=== PATIENT | female | born 1940 | race Caucasian/White ===

== ENCOUNTER 2020-05-17 08:00 | Day surgery (SDC) | payer MEDICARE ==
[2020-05-12 12:14] LABS: HEMATOCRIT 41.6 % (36.0-47.0); HEMOGLOBIN 14.2 g/dL (12.0-15.5); MEAN CORPUSCULAR HEMOGLOBIN 31.6 pg (27.0-33.4); MEAN CORPUSCULAR HGB CONC 34.2 g/dL (32.0-36.0); MEAN CORPUSCULAR VOLUME 92 fl (80-97); PLATELET COUNT 233 10^3/uL (150-450); RED CELL DISTRIBUTION WIDTH 13.4 % (11.5-14.0); WHITE BLOOD COUNT 9.4 10^3/uL (4.0-10.5)
[2020-05-12 12:34] LABS: ANION GAP 6 (5-19); BLOOD UREA NITROGEN 16 mg/dL (7-20); CALCIUM 9.4 mg/dL (8.4-10.2); CARBON DIOXIDE 27 mmol/L (22-30); CHLORIDE 106 mmol/L (98-107); GLUCOSE 104 mg/dL (75-110); POTASSIUM 4.8 mmol/L (3.6-5.0)
--- NOTE | 2020-05-12 16:37 | EKG REPORT ---
SEVERITY:- NORMAL ECG - SINUS BRADYCARDIA : Confirmed by: Josep Meyer MD 12-May-2020 16:36:54
[~2020-05-17 08:00] MED LIST: CEFAZOLIN 1 GM/D5W RTU 1 GM/50 ML RTUPB IV ONE; CEFAZOLIN 1 GM/D5W RTU 1 GM/50 ML RTUPB IV PRN; LACTATED RINGERS 1000 ML IV PRN; LIDOCAINE 0.5% INJ-PF (5 MG/ML) 50 ML SDV SUBCUT PRN; LIDOCAINE 4% CREAM 5 GM TUBE ONE; LIDOCAINE 4% CREAM 5 GM TUBE TP PRN
[2020-05-17] MEDS ORDERED: DEXAMETHASONE SOD PHOSPHATE INJ 4 MG/1 ML VIAL ONE ×2 (10:59→13:04)
[2020-05-17] MEDS ORDERED: ONDANSETRON HCL INJ/PF 4 MG/2 ML SDV ONE ×2 (10:59→13:04)
[2020-05-17] MEDS ORDERED: METHYLENE BLUE 50 MG/10 ML AMPULE ONE (12:52)
[2020-05-17] MEDS ORDERED: LIDOCAINE 1%/EPINEPHRINE INJ 20 ML VIAL ONE (12:52)
[2020-05-17] MEDS ORDERED: MICROFIBRILLAR COLLAGEN 1 GM PACK ONE (12:52)
[2020-05-17] MEDS ORDERED: KETOROLAC TROMETHAMINE 60 MG/2 ML SDV ONE (13:04)
[2020-05-17] MEDS ORDERED: LIDOCAINE 2% INJ-PF (20 MG/ML) 10 ML AMPUL ONE (13:04)
[2020-05-17] MEDS ORDERED: HYDROMORPHONE HCL INJ/PF 2 MG/ML AMPULE ONE (13:04)
[2020-05-17] MEDS ORDERED: FENTANYL CITRATE INJ/PF 100 MCG/2 ML AMPUL ONE ×2 (13:04→14:36)
--- NOTE | 2020-05-17 13:04 | RADIOLOGY REPORT (SQ) ---
EXAM DESCRIPTION: NM LYMPHATICS/LYMPH GLANDS IMAGES COMPLETED DATE/TIME: 05/17/2020 11:00 am REASON FOR STUDY: BREAST CANCER C50.911 MALIGNANT NEOPLASM OF UNSP SITE OF RIGHT FEMALE JÚNIOR COMPARISON: None. RADIONUCLIDE AND DOSE: 565 microcuries TC-99m tilmanocept - [employer]. The route of agent administration: Subcutaneous in the skin. TECHNIQUE: The skin of the right breast was prepped in sterile fashion. The radiopharmaceutical was administered in equally divided doses in the periareolar breast, upper inner quadrant. LIMITATIONS: None. FINDINGS: Images demonstrate activity at the injection site as well as migration to 2 right axillary lymph nodes. IMPRESSION: ADMINISTRATION OF RADIOPHARMACEUTICAL FOR SENTINEL LYMPH NODE EVALUATION. TECHNICAL DOCUMENTATION: JOB ID: [id number] 2010 [employer]- All Rights Reserved Reading location - IP/workstation name: [email or web address]
[2020-05-17] MEDS ORDERED: PROPOFOL INJ 200 MG/20 ML VIAL IV ONE (13:05)
[2020-05-17] MEDS ORDERED: PROMETHAZINE HCL INJ 25 MG/1 ML VIAL IV PRN ×2 (13:52)
[2020-05-17] MEDS ORDERED: DIPHENHYDRAMINE HCL 50 MG/ML VIAL IV PRN (13:52)
[2020-05-17] MEDS ORDERED: MORPHINE SULFATE 10 MG/ML INJ IV PRN (13:52)
[2020-05-17] MEDS ORDERED: MEPERIDINE HCL/PF INJ 25 MG/1 ML DISP.SYRIN IV PRN (13:52)
[2020-05-17] MEDS ORDERED: FENTANYL CITRATE INJ/PF 100 MCG/2 ML AMPUL IV PRN ×3 (13:52)
--- NOTE | 2020-05-17 14:29 | Operative Report ---
Operative Report DATE OF SURGERY: 05/17/20 PREOPERATIVE DIAGNOSIS: Invasive ductal carcinoma, right breast, triple negative POSTOPERATIVE DIAGNOSIS: Same OPERATION: 1. Right breast lumpectomy using ultrasound guidance. 2. [place] lymph node biopsy, right axilla. 3. Interpretation of specimen radiograph intraoperatively SURGEON: TOAN HURD SPECIAL OFFICER AUTOMAT: CHANDRAKANT YAÑEZ ANESTHESIA: GA TISSUE REMOVED OR ALTERED: Right breast lumpectomy; right axillary sentinel lymph node COMPLICATIONS: None ESTIMATED BLOOD LOSS: Scant INTRAOPERATIVE FINDINGS: See below PROCEDURE: Patient was seen in preop holding area the right breast was marked. Patient undergone lymphoscintigraphy the right axilla with area of increased uptake. She was taken to the main operating room where general anesthesia was induced via LMA. Surgical plan and surgical timeout were conducted. Right arm was abducted, right breast exposed. The right breast was now injected with approximately 2 and half cc of full-strength methylene blue at the upper outer edge of the areolar border into the dermis. The right breast was massaged for 5 minutes, then the right breast and right axilla were prepped and draped in sterile fashion Repeat timeout conducted We approached the right breast lumpectomy first. The target lesion was approximately 6 cm from the nipple 12 o'clock position. This was confirmed by ultrasonography which revealed the previously biopsied and clipped tumor mass approximately 1 cm. Skin overlying the mass was anesthetized 1% plain lidocaine. A 3 and half to 4 cm incision was made with the #10 blade, and a lumpectomy specimen excised using ultrasound real-time as a guide to localize the target tumor. The lumpectomy was performed with electrocautery. Once the specimen was removed from the right breast, it was found to be approximately 5 x 5 x 5 cm. It was oriented with a long suture in the lateral position, short suture in the superior position using 2-0 silk suture. It was ultrasound on the back table and found to contain the tumor and the clip marker. We also subjected the specimen to specimen radiography using the specimen radiograph machine and this displayed 2 views and this confirmed clip marker placement in the tumor. Dr. Hamilton walked the specimen over to pathology where it was reviewed by Drs. Prado and Juan. The specimen was inked on the anterior side, and felt to contain the tumor within an adequate gross margin so no further cavity margins were recommended. The right axilla was now exposed. An area of increased activity was detected with the bedside neoprobe. Skin was anesthetized 1% plain lidocaine. A 4 cm incision was made in the right axilla, and the first and only sentinel lymph node was identified. It was blue, hot, and level 1. It was dissected out and found to have an in vivo count of 31,615 and an ex vivo count of 37,625. Chronic counts were negligible. At this point we felt the operation was complete. Sponge and counts are correct. Wounds were found to be hematologically stable. Wounds closed with 3- 0 Vicryl Dermabond glue. Patient tolerated the procedure well, extubated, and taken to recovery room stable condition The physician certified surgical tech/first assistant, Ms. Stark, provided assistance during this case by: Assisting with retracting tissue, instillation of local anesthesia and closure of skin incisions.
[2020-05-17] MEDS ORDERED: OXYCODONE-ACETAMINOPHEN 5-325 MG TABLET PO PRN (14:31)
--- NOTE | 2020-05-17 14:31 | Discharge Summary ---
Discharge Summary (SDC) - Discharge Final Diagnosis: right breast cancer Date of Surgery: 05/17/20 Discharge Date: 05/17/20 Condition: Good Forms: ASU Anesthesia D/C Instruction, Discharge POC-Surgical Service Treatment or Instructions: [facility] [address], [place] [address] Care Instructions Following Your Lumpectomy Activities: Resume normal activities when you feel comfortable. It is best to remain as active as possible to speed your recovery. It is common to experience some fatigue after surgery and you may find that short naps are helpful. Avoid strenuous activity such as weight lifting, tennis, etc at your surgical site for two weeks. Perform gentle arm exercises daily and do not favor your operative arm to due increased risk of mobility issues postoperatively. No driving for 7 days after surgery. Do not drive if you are taking pain medication other than Tylenol or Ibuprofen. No swimming, tub baths or soaking in a hot tub for 4 weeks. There are no dietary restrictions. Do not smoke as this impairs wound healing. Surgical Site care: You may shower 24 hours after surgery to include washing the wound with soap and water using your hands. Leave skin glue intact. Do not scrub the incision. Pat the area dry with a towel. You do not need to recover the wound although some patients find that they feel more comfortable using a light dressing for a few days to absorb any minimal drainage which may occur. Medications: Take Toradol 10mg one pill by mouth every six hours as needed for pain. Do not take additional NSAIDs (Ibuprofen, Aleve, Goodies Powder, ect) with medication. You may take Tylenol with medication. You may experience constipation after surgery while taking pain medications. If using a narcotic on a regular basis, take a stool softener such as Colace twice a day. It is helpful to stay hydrated by drinking lots of fluids. Walking is also helpful and is good exercise after surgery. If you need extra help, use Milk of Magnesia according to the directions on the package. Follow-up: Call our office at to make a follow-up appointment in 10-14 days. Your doctor will call to discuss the pathology report with you as soon as it is available. Concerns: If you had a sentinel lymph node biopsy with your mastectomy, your urine may have a greenish discoloration. This is normal and will resolve as the blue dye slowly leaves your system. If you notice significant leakage around the drains, this is not normal. The drains may be clogged. Please call our office to come in immediately for the drains to be checked. Some bruising may occur and will go away over time. If you have a fever of 101.5 or greater, chills, redness at the incision site, excessive drainage from your wound or severe pain not relieved by pain medication, call your doctor. A physician is available 24 hours a day 7 days a week in addition to regular office hours. If problems arise after normal office hours please call the hospital at . Pl wilder call if you have any questions or concerns. Prescriptions: Ketorolac Tromethamine [Toradol 10 mg Tablet] 10 mg PO Q6HP PRN #20 tablet PRN Reason: Referrals: TOAN ELISE MD [ACTIVE STAFF] - 06/01/20 1:45 pm Discharge Diet: As Tolerated Discharge Activity: No Lifting Over 10 Pounds, Walk Frequently Report the Following to Your Physician Immediately: Increase in Pain, Fever over 101 Degrees, Unusual Bleeding, Redness, Swelling, Warmth, Increased Soreness, Drainage-Foul Smelling
[2020-05-17] MEDS ORDERED: MEPERIDINE HCL/PF INJ 25 MG/1 ML DISP.SYRIN ONE (14:39)
[2020-05-17] MEDS ORDERED: PROMETHAZINE HCL INJ 25 MG/1 ML VIAL ONE (14:53)
[2020-05-17] MEDS ORDERED: OXYCODONE-ACETAMINOPHEN 5-325 MG TABLET ONE (16:11)
[2020-05-17 19:23] VITALS: BP 120/66
== END 2020-05-17 17:38 | disposition home or self-care (01) ==
LOC: OROUT 08:00
PROVIDERS: ATTEND Surgery
DX: C50.811 Malignant neoplasm of overlapping sites of right female breast (principal); C77.3 Secondary and unspecified malignant neoplasm of axilla and upper limb lymph nodes; R06.02 Shortness of breath; K21.9 Gastro-esophageal reflux disease without esophagitis; I10 Essential (primary) hypertension; M15.9 Polyosteoarthritis, unspecified; E07.9 Disorder of thyroid, unspecified; Z79.899 Other long term (current) drug therapy; Z03.818 Encounter for observation for suspected exposure to other biological agents ruled out
CPT/HCPCS: 19301; 38500; 93005; 36415; 85027; 80048; 88342 ×2; 88307 ×2; 78195; 93010; 01610; 76098; U0003; A9520; J0690; J1100; J3010; J3490 ×3; J2175; A9270; J2550; J2405; J2704; Q9968; C9803; 1610; 87635; J1170; J1885